=== PATIENT | male | born 1980 | race Caucasian/White ===

== ENCOUNTER 2016-11-13 12:09 | Emergency (ER) | payer BC ==
[~2016-11-13] VITALS: Ht 177.8 cm; Wt 90.7 kg
[~2016-11-13 12:09] MED LIST: CEPH500C PO; HYDR1TAB8 PO
[2016-11-13] MEDS ORDERED: LIDOCAINE 1% INJ 20 ML (XYLOCAINE) VIAL ONE (12:14)
[2016-11-13] MEDS ORDERED: TETANUS,DIPTH,PERTUSS P/F (BOOSTRIX) 0.5 ML VIAL IM ONE (12:30)
[2016-11-13] MEDS ORDERED: LIDOCAINE 1% 10 MG/ML 0.2 ML SYR (FOR IV START) INJ ONE (12:30)
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
[2016-11-13 13:28] VITALS: BP 145/102
--- OUTSIDE RECORDS SUMMARY | 2016-11-16 13:21 | XMS REPORT | Continuity of Care Document ---
Author Author [facility] Organization [facility] Address Unknown Phone Unavailable Support Name Relationship Address Phone ANEL VIERA Next Of Kin [address], [place] [id number] Insurance Providers Payer Name Policy Number Subscriber Name Relationship [facility] [id number] Anel Viera D 02 Advance Directives Directive Response Recorded Date Advance Directives N 03/08/13 11:53am Organ Donor Y 03/04/13 3:53pm Problems No Known Problems or Medical conditions. Allergies, Adverse Reactions, Alerts Allergen Type Severity Reaction Last Updated No Known Drug Allergies 03/04/13 Medications Medication Dose Units Route Sig Qty Days Cephalexin Monohydrate (Cephalexin) 1 Each PO QID Hydrocodone Bitartrate/Ibuprofen (Vicoprofen 200-7.5 Mg Tab) 1 Each PO Q4H PRN Response Recorded Date/Time Status not known Unknown Results No Known Relevant Diagnostic Tests, Laboratory Data and/or Discharge Summary.
== END 2016-11-13 13:28 | disposition home or self-care (01) ==
LOC: EDUNIT# 12:09 → ER 12:11
DX: S91.114A Laceration without foreign body of right lesser toe(s) without damage to nail, initial encounter (principal); Z86.79 Personal history of other diseases of the circulatory system; W22.8XXA Striking against or struck by other objects, initial encounter
CPT/HCPCS: 90471; 90715

== ENCOUNTER 2016-11-23 16:48 | Emergency (ER) | payer BC ==
[~2016-11-23] VITALS: Ht 177.8 cm; Wt 90.7 kg
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
[2016-11-23 17:45] VITALS: BP 150/95
== END 2016-11-23 17:45 | disposition home or self-care (01) ==
LOC: EDUNIT# 16:48 → ER 16:49
DX: S91.114D Laceration without foreign body of right lesser toe(s) without damage to nail, subsequent encounter (principal)